=== PATIENT | male | born 1980 | race Caucasian/White ===

== ENCOUNTER 2016-07-31 23:52 | Emergency (ER) | payer OTHER ==
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
[~2016-07-31 23:52] MED LIST: AMOXICILLIN PO; BACTRIM DS TABL1 TA1 PO; BENADRYL25 MG PO; LORTAB 10-5001 EACH PO; NO MEDICATIONS; PHENERGAN PO; PRILOSEC; VICODIN 5/500 T1 TAB PO; ZYRTEC
== END 2016-08-01 00:41 | disposition home or self-care (01) ==
LOC: SED 23:52
DX: K04.7 Periapical abscess without sinus (principal); F17.200 Nicotine dependence, unspecified, uncomplicated; J45.909 Unspecified asthma, uncomplicated; W22.8XXA Striking against or struck by other objects, initial encounter; Y92.009 Unspecified place in unspecified non-institutional (private) residence as the place of occurrence of the external cause
CPT/HCPCS: 70486; 99283; 99284